=== PATIENT | male | born 1995 | race Caucasian/White ===

== ENCOUNTER 2022-03-21 07:59 | Emergency (ER) | payer OTHER ==
[~2022-03-21] VITALS: Ht 187.9 cm; Wt 106.6 kg
== END 2022-03-21 10:28 | disposition home or self-care (01) ==
LOC: ED 07:59
DX: M25.561 Pain in right knee (principal); M25.562 Pain in left knee; Z88.0 Allergy status to penicillin

== ENCOUNTER 2022-12-24 17:07 | Emergency (ER) | payer SELFPAY ==
[~2022-12-24] VITALS: Ht 187.9 cm; Wt 115.7 kg
== END 2022-12-24 19:58 | disposition home or self-care (01) ==
LOC: ED 17:07
DX: M79.645 Pain in left finger(s) (principal); Z88.0 Allergy status to penicillin

== ENCOUNTER 2024-11-23 10:21 | Emergency (ER) | payer SELFPAY ==
[~2024-11-23] VITALS: Wt 111.1 kg
[2024-11-23] MEDS ORDERED: NAPROSYN500 MG PO (11:47)
[2024-11-23] MEDS ORDERED: Water, Sterile 10 ML VIAL ONE (12:24)
== END 2024-11-23 11:54 | disposition home or self-care (01) ==
LOC: ED 10:21
DX: S46.911A Strain of unspecified muscle, fascia and tendon at shoulder and upper arm level, right arm, initial encounter (principal); Z88.0 Allergy status to penicillin; X50.0XXA Overexertion from strenuous movement or load, initial encounter; Y93.89 Activity, other specified; Y92.89 Other specified places as the place of occurrence of the external cause; Y99.8 Other external cause status